=== PATIENT | male | born 1965 | race Caucasian/White ===

== ENCOUNTER 2022-03-12 18:27 | Emergency (ER) | payer MEDICAID ==
[~2022-03-12] VITALS: Ht 177.8 cm; Wt 118.2 kg
[~2022-03-12 18:27] MED LIST: ASPI-1265 PO; METF-436 PO
[2022-03-12] MEDS ORDERED: IODIXANOL 320 MG/ML INFUS..BTL 100ML IV ONE (18:38)
[2022-03-12 18:54] LABS: BASOPHILS # (AUTO) 0.1 X10'3 (0-0.2); EOSINOPHILS # (AUTO) 0.2 X10'3 (0-0.9); EOSINOPHILS % (AUTO) 1.9 % (0-6); HEMATOCRIT 44.8 % (42.0-52.0); HEMOGLOBIN 15.1 g/dl (14.0-17.9); LYMPHOCYTES # (AUTO) 3.3 X10'3 (1.1-4.8); LYMPHOCYTES % (AUTO) 31.6 % (21-51); MEAN CORPUSCULAR HEMOGLOBIN 30.7 PG (27.0-31.0); MEAN CORPUSCULAR HGB CONC 33.8 g/dL (33.0-36.5); MEAN CORPUSCULAR VOLUME 90.8 FL (78-98); MEAN PLATELET VOLUME 9.5 FL (7.4-10.4); MONOCYTES # (AUTO) 0.9 X10'3 (0-0.9); MONOCYTES % (AUTO) 8.1 % (2-12); NEUTROPHILS % (AUTO) 57.4 % (42-75); PLATELET COUNT 314 X10'3 (140-440); RED BLOOD COUNT 4.94 X10'6 (4.70-6.10); RED CELL DISTRIBUTION WIDTH 13.5 % (11.5-14.5); WHITE BLOOD COUNT 10.5 X10'3 (4.5-11.0)
[2022-03-12] MEDS ORDERED: niCARDipine-NS 40mg/200ml IVPB 200 ML IV SCH (19:15)
[2022-03-12 19:44] VITALS: BP 210/99
[2022-03-12 20:02] LABS: APTT 25 SECONDS (22-32)
[2022-03-12 20:04] LABS: ALANINE AMINOTRANSFERASE 26 U/L (12-78); ALBUMIN 3.7 G/DL (3.4-5.0); ALBUMIN/GLOBULIN RATIO 0.9 (1.1-1.5); ALKALINE PHOSPHATASE 114 IU/L (46-116); ANION GAP 9 (8-16); ASPARTATE AMINO TRANSFERASE 26 U/L (10-37); BILIRUBIN,TOTAL 0.6 MG/DL (0.1-1.0); BLOOD UREA NITROGEN 19 MG/DL (7-18); CALCIUM 8.5 MG/DL (8.5-10.1); CHLORIDE 104 MMOL/L (99-107); CREATININE 1.36 MG/DL (0.60-1.10); GLUCOSE 193 MG/DL (70-104); POTASSIUM 3.7 MMOL/L (3.5-5.1); SODIUM 140 MMOL/L (135-145); TOTAL CARBON DIOXIDE 26.7 MMOL/L (24-32); TOTAL PROTEIN 7.7 G/DL (6.4-8.2); eGFR 54 ML/MIN
[2022-03-13] MEDS ORDERED: MESSAGE TO NURSING IV SCH (10:00)
== END 2022-03-12 20:26 ==
LOC: ER 18:28
DX: I61.8 Other nontraumatic intracerebral hemorrhage (principal); Z20.822 Contact with and (suspected) exposure to COVID-19; I10 Essential (primary) hypertension; R20.0 Anesthesia of skin; E11.9 Type 2 diabetes mellitus without complications; Z86.73 Personal history of transient ischemic attack (TIA), and cerebral infarction without residual deficits; Z79.82 Long term (current) use of aspirin; Z79.899 Other long term (current) drug therapy; Z91.018 Allergy to other foods; Z88.6 Allergy status to analgesic agent
CPT/HCPCS: 36415; 70450; 70496; 70498; 71045; 80053; 82948; 85025; 85610; 85730; 86885; 86900; 86901; 87635; 93005; 96365; 99291; C9803; J3490; Q9967

== ENCOUNTER 2022-12-30 03:03 | Emergency (ER) | payer MEDICAID ==
[~2022-12-30] VITALS: Ht 165.1 cm; Wt 125.0 kg
[2022-12-30] MEDS ORDERED: LIDOCAINE 2% (20mg/ml) w/EPINEPHRINE 1:200,000-PF 10 ML inj. SQ ONE (03:20)
[2022-12-30] MEDS ORDERED: LIDOCAINE 2%/EPI 1:100,000 inj. Multi-dose 20 ML VIAL SQ ONE (03:30)
[2022-12-30] MEDS ORDERED: bacitracin ointment unit dose packet TP ONE (04:35)
[2022-12-30] MEDS ORDERED: bacitracin 15gm ointment TP ONE (04:40)
[2022-12-30] MEDS ORDERED: tetanus & diphtheria toxoid (Td) vaccine 0.5ml IMVAC ONE (05:20)
[2022-12-30] MEDS ORDERED: TETanus/Pertussis (Acell)/Diphther VAC/PF (Tdap-Adult) 0.5ml syringe IMVAC ONE (05:25)
[2022-12-30 05:32] VITALS: BP 156/72
== END 2022-12-30 05:33 | disposition home or self-care (01) ==
LOC: ER 03:04
DX: S61.211A Laceration without foreign body of left index finger without damage to nail, initial encounter (principal); I10 Essential (primary) hypertension; E11.9 Type 2 diabetes mellitus without complications; Z86.73 Personal history of transient ischemic attack (TIA), and cerebral infarction without residual deficits; Z60.2 Problems related to living alone; Z91.018 Allergy to other foods; Z88.6 Allergy status to analgesic agent; Z79.899 Other long term (current) drug therapy; Z98.890 Other specified postprocedural states; W26.8XXA Contact with other sharp object(s), not elsewhere classified, initial encounter; Y93.89 Activity, other specified; Y92.89 Other specified places as the place of occurrence of the external cause; Y99.8 Other external cause status
CPT/HCPCS: 12002; 90471; 90715; 99283; A6258

== ENCOUNTER 2024-01-04 01:21 | Emergency (ER) | payer MEDICAID ==
[~2024-01-04] VITALS: Ht 165.1 cm; Wt 119.0 kg
[2024-01-04] MEDS ORDERED: HYDR-3965 PO ×2 (02:44→23:07)
[2024-01-04] MEDS ORDERED: ONDA8TAB13 PO (02:44)
[2024-01-04] MEDS ORDERED: CYCL-1 PO (02:44)
[2024-01-04] MEDS: ketorolac trometh inj. 60 MG/2 ML VIAL IM ONE (02:57)
[2024-01-04] MEDS: orphenadrine citrate 60mg/2ml inj. IM ONE (02:57)
[2024-01-04] MEDS: acetaminophen 325mg tablet PO ONE (02:58)
[2024-01-04] MEDS: ondansetron 4mg rapidly disintigrating tab PO ONE (02:58)
[2024-01-04] MEDS: HYDROcodone/acetaminophen 5mg/325mg tablet PO ONE (02:58)
[2024-01-04 03:18] VITALS: BP 140/50; PULSE 76; RESP 18; TEMP 98.6; O2SAT 96
== END 2024-01-04 03:21 | disposition home or self-care (01) ==
LOC: ER 01:22
DX: G89.29 Other chronic pain (principal); M54.9 Dorsalgia, unspecified; I11.0 Hypertensive heart disease with heart failure; E11.9 Type 2 diabetes mellitus without complications; Z91.018 Allergy to other foods; Z79.899 Other long term (current) drug therapy
CPT/HCPCS: 96372; 99284; J1885; J2360

== ENCOUNTER 2024-11-08 16:29 | Emergency (ER) | payer MEDICAID ==
[~2024-11-08] VITALS: Ht 165.1 cm; Wt 121.8 kg
[~2024-11-08 16:29] MED LIST changes: +CYCL-1 PO; +ONDA-245 PO
[2024-11-08 16:32] VITALS: BP 198/84; PULSE 69; RESP 18; TEMP 97; O2SAT 98
[2024-11-08 16:55] LABS: BILIRUBIN,URINE NEGATIVE (Neg); CLARITY,URINE SLIGHTLY CLOUDY (Clear); COLOR,URINE YELLOW (Yellow); GLUCOSE, URINE NEGATIVE (Neg); KETONES,URINE NEGATIVE (Neg); LEUKOCYTE ESTERASE ,URINE NEGATIVE (Neg); NITRITES, URINE NEGATIVE (Neg); OCCULT BLOOD,URINE TRACE-INTACT (Neg); PROTEIN,URINE TRACE mg/dl (Neg); UROBILINOGEN,URINE 0.2 E.U/dL (0.2-1.0)
[2024-11-08 17:05] LABS: UA COLLECTION TYPE CLN CATCH MIDSTREAM
[2024-11-08 17:09] LABS: BACTERIA,URINE NONE SEEN /HPF (Neg); SQUAMOUS EPITHELIAL CELL,UR NONE SEEN /LPF (FEW); WBC,URINE 0-4 /HPF (0-4)
[2024-11-08] MEDS ORDERED: PHEN-824 PO (17:20)
[2024-11-08] MEDS ORDERED: NITR100C PO (17:20)
[2024-11-08] MEDS ORDERED: nitrofurantoin macrocrystal 100mg capsule PO SCH (17:20)
[2024-11-08] MEDS ORDERED: nitrofurantoin macrocrystal 100mg capsule PO ONE (17:20)
[2024-11-08] MEDS: phenazopyridine 100mg tablet PO ONE (17:30)
[2024-11-08] MEDS: nitrofuran monohydrate/nitrofuran macrocrysal 100 MG (MacroBID) capsule PO ONE (17:30)
== END 2024-11-08 18:06 | disposition home or self-care (01) ==
LOC: ER 16:29
DX: N39.0 Urinary tract infection, site not specified (principal); R31.9 Hematuria, unspecified; M54.89 Other dorsalgia; I10 Essential (primary) hypertension; E11.9 Type 2 diabetes mellitus without complications; Z86.73 Personal history of transient ischemic attack (TIA), and cerebral infarction without residual deficits; Z79.82 Long term (current) use of aspirin; Z79.899 Other long term (current) drug therapy; Z79.84 Long term (current) use of oral hypoglycemic drugs; Z88.8 Allergy status to other drugs, medicaments and biological substances; Z91.018 Allergy to other foods; Z60.2 Problems related to living alone
CPT/HCPCS: 81001; 82948; 99283